=== PATIENT | male | born 1945 | race Caucasian/White ===

== ENCOUNTER 2017-03-28 08:05 | Day surgery (SDC) | payer OTHER ==
[2017-03-28] MEDS ORDERED: PROPOFOL 20 ML ONE ×5 (08:44)
[2017-03-28] MEDS ORDERED: TETRACAINE/BENZOCAINE/BUTAMBEN 20 GM SPR TP ONE (08:47)
[2017-03-28 08:50] VITALS: BMI 34.9
[2017-03-28 09:54] VITALS: TEMP 97.7
[2017-03-28 10:15] VITALS: PULSE 55
[2017-03-28 10:47] VITALS: BP 119/67
--- NOTE | 2017-03-29 13:44 | PATH ---
Surgical Pathology Report Patient Name: SHABNAM LANTIGUA [facility]. Rec. #: [id number] /Age/Gender: 1945 (Age: 72) / M Account: [id number] Location: U-ENDOSCOPY Taken: 03/28/2017 Received: 03/28/2017 Reported: 03/29/2017 Physicians: Bridgette Mak M.D. Specimen(s) Received A: BX DUODENUM B: BX ANTRUM C: BX RECTAL POLYPS D: BX RIGHT COLON POLYP E: BX POLYP SIGMOID Clinical History Upper GI bleeding, rule out ulcer, adenoma surveillance colon Final Diagnosis A. 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 NO HISTOLOGIC EVIDENCE OF GLUTEN SENSITIVE ENTEROPATHY (CELIAC DISEASE). B. STOMACH, ANTRUM, BIOPSY: GASTRIC ANTRAL MUCOSA WITH FOCALLY ACTIVE MARKED CHRONIC GASTRITIS. IMMUNOSTAIN FOR H. PYLORI IS POSITIVE FOR ORGANISMS (MODERATE NUMBER OF ORGANISMS). C. RECTUM, POLYPS, BIOPSY: FRAGMENTS OF HYPERPLASTIC POLYPS. D. COLON, RIGHT, POLYP, BIOPSY: TUBULAR ADENOMA. E. COLON, SIGMOID, POLYP, BIOPSY: HYPERPLASTIC POLYP. Electronically Signed Clovis Dickinson M.D. Gross Description A. Received in formalin, labeled "biopsy duodenum and second portion bulb" are 3 caal, irregular portions of soft tissue ranging from 0.3-0.4 cm in greatest dimension. The specimens are submitted in toto in one cassette. B. Received in formalin, labeled "biopsy antrum" are 4 caal, irregular portions of soft tissue ranging from 0.2-0.5 cm in greatest dimension. The specimens are submitted in toto in one cassette. C. Received in formalin, labeled "biopsy rectal polyps" are 6 caal, irregular portions of soft tissue ranging from 0.1-0.4 cm in greatest dimension. The specimens are submitted in toto in one cassette. D. Received in formalin, labeled "biopsy right colon polyp" are 3 caal, irregular portions of soft tissue ranging from 0.1-0.3 cm in greatest dimension. The specimens are submitted in toto in one cassette. E. Received in formalin, labeled "biopsy polyp sigmoid colon" is a caal, irregular portion of soft tissue measuring 0.3 cm in greatest dimension. The specimen is submitted in toto in one cassette. 03/28/201703/28/2017
== END 2017-03-28 10:48 | disposition home or self-care (01) ==
LOC: JASU-ENDO 08:05
PROVIDERS: ATTEND Internal Medicine Gastroenterology
PROC: 0DBK8ZX Excision of Ascending Colon, Via Natural or Artificial Opening Endoscopic, Diagnostic (ICD-10-PCS; 2017-03-28)
PROC: 0DBP8ZX Excision of Rectum, Via Natural or Artificial Opening Endoscopic, Diagnostic (ICD-10-PCS; 2017-03-28)
PROC: 0DB98ZX Excision of Duodenum, Via Natural or Artificial Opening Endoscopic, Diagnostic (ICD-10-PCS; 2017-03-28)
PROC: 0DB68ZX Excision of Stomach, Via Natural or Artificial Opening Endoscopic, Diagnostic (ICD-10-PCS; 2017-03-28)
PROC: 0DBN8ZX Excision of Sigmoid Colon, Via Natural or Artificial Opening Endoscopic, Diagnostic (ICD-10-PCS; principal; 2017-03-28 08:45)
DX: Z86.010 Personal history of colon polyps (principal); D12.2 Benign neoplasm of ascending colon; D12.5 Benign neoplasm of sigmoid colon; K57.30 Diverticulosis of large intestine without perforation or abscess without bleeding; K64.8 Other hemorrhoids; K62.1 Rectal polyp
CPT/HCPCS: 88305-TC; 88342-TC